=== PATIENT | female | born 1955 | race African-American/Black ===

== ENCOUNTER 2017-06-25 09:38 | Inpatient (IN) | payer MEDICAID ==
[~2017-06-25] VITALS: Ht 175.3 cm; Wt 89.4 kg
--- NOTE | 2017-06-25 09:38 | NUR ---
C/O WORSENING CHEST PAIN X 2 WKS, RADIATING TO THE BACK. NAD NOTED. PT AAO X4, AMB WITH STEADY GAIT. RR EVEN AND UNLABORED. PENDING MD VINSON.
[2017-06-25] MEDS ORDERED: ASPIRIN 81 MG TAB.CHEW ONE (10:05)
[2017-06-25] MEDS ORDERED: NITROGLYCERIN PACKET 1 GM PACKET ONE (10:05)
[2017-06-25 10:22] LABS: BASOPHILS % (AUTO) 0.6 % (0.0-2.0); EOSINOPHILS % (AUTO) 2.1 % (0.0-6.0); HEMATOCRIT 39 % (33-45); HEMOGLOBIN 13.6 g/dL (11.5-14.8); LYMPHOCYTES # (AUTO) 3.9 /CMM (0.8-4.8); LYMPHOCYTES % (AUTO) 57.1 % (20.0-44.0); MEAN CORPUSCULAR HGB CONC 35 g/dl (31.0-36.0); MEAN CORPUSCULAR VOLUME 108 fL (82-100); MONOCYTES # (AUTO) 0.3 /CMM (0.1-1.30); MONOCYTES % (AUTO) 5.2 % (2.0-12.0); NEUTROPHILS # (AUTO) 2.3 /CMM (1.8-8.9); PLATELET COUNT (AUTO) 225 /CMM (150-450); RDW COEFFICIENT OF VARIATION 12.8 (11.5-15.0); RED BLOOD CELL COUNT(AUTO) 3.59 MIL/uL (4.0-5.2); WHITE BLOOD COUNT (AUTO) 6.6 K/uL (4.3-11.0)
[2017-06-25] MEDS ORDERED: ASPIRIN 81 MG TAB.CHEW PO ONE (10:30)
[2017-06-25] MEDS ORDERED: NITROGLYCERIN PACKET 1 GM PACKET TD ONE (10:30)
[2017-06-25 10:32] LABS: CALCIUM, SERUM 8.8 mg/dL (8.5-10.1); CARBON DIOXIDE 29 mmol/L (21-32); CHLORIDE 105 mmol/L (98-107); CREATININE 0.7 mg/dL (0.6-1.3); GLUCOSE 106 mg/dL (74-106); POTASSIUM 3.7 mmol/L (3.5-5.1); SODIUM SERUM 140 mmol/L (136-145); UREA NITROGEN, BLOOD 12 mg/dL (7-18)
[2017-06-25 10:36] LABS: INR 0.92 (0.85-1.15)
[2017-06-25 10:40] LABS: TROPONIN I < 0.017 ng/mL (0.00-0.056)
[2017-06-25] MEDS ORDERED: PERINDOPRIL PO (11:16)
[2017-06-25] MEDS ORDERED: NEVI200T PO (11:16)
[2017-06-25] MEDS ORDERED: INDAPAMIDE PO (11:16)
[2017-06-25] MEDS ORDERED: LAMI1TAB PO (11:16)
[2017-06-25 11:35] LABS: EOSINOPHILS % (MANUAL) 2 % (0-4); MONOCYTES % (MANUAL) 3 % (0-11.0); NEUTROPHILS % (MANUAL) 39 (42-76); REACTIVE LYMPHOCYTES 8 % (0-0)
[2017-06-25 11:39] LABS: LYMPHOCYTES % (MANUAL) 48 % (16-48)
--- NOTE | 2017-06-25 11:47 | NUR ---
RM 322-1
--- NOTE | 2017-06-25 12:29 | NUR ---
REPORT GIVEN TO MARKY GARCÍA FOR [facility]
[2017-06-25 12:35] VITALS: BP 142/86
--- NOTE | 2017-06-25 12:35 | NUR ---
tele pvc loader: admission admitted this 62 yr old female pt from [facility] with dx: chest pain accompanied by daughter. awake, a/ox4, ambulatory. speaks georgian fluent with little somali. daughter to translate from time to time. denies chest pain at this time, stated, "it was like a burning sensation before, but not now." pt also denies dizziness, martines, n/v, and sob at this time. place pt on tele sr=[id number]. oriented to room and surroundings. pt hiv positive and pt and daughter request not to tell her son re: this matter. fely made aware. jeanmarie (admitting doctor) made aware. awaiting orders. will continue to monitor.
--- NOTE | 2017-06-25 14:00 | NUR ---
tele crnp: notes pt resting comfortable in bed. no c/o chest pain or sob at this time.
--- NOTE | 2017-06-25 15:00 | NUR ---
tele chaperon: notes son here and very demanding, son wants all questions and concerns answer immediately. all concerns answered. jeanmarie (acnp) notified and made aware.
[2017-06-25] MEDS ORDERED: NITROGLYCERIN 0.4 MG/TAB BOTTLE SL PRN (15:30)
[2017-06-25] MEDS ORDERED: Z GUARD REMEDY 2 OZ OINT TP PRN (15:30)
[2017-06-25] MEDS ORDERED: MORPHINE SULFATE INJ 4 MG/ML DISP.SYRIN IV PRN (15:30)
[2017-06-25] MEDS ORDERED: ACETAMINOPHEN 325 MG TABLET PO PRN (15:30)
[2017-06-25] MEDS ORDERED: MAGNESIUM HYDROXIDE 30 ML UDC PO PRN (15:30)
[2017-06-25] MEDS ORDERED: MAG HYDROX/AL HYDROX/SIMETH 30 ML UDC PO PRN (15:30)
[2017-06-25] MEDS ORDERED: ONDANSETRON HCL/PF 4 MG/2 ML VIAL IVP PRN (15:30)
[2017-06-25] MEDS ORDERED: ZOLPIDEM TARTRATE 5 MG TABLET PO PRN (15:30)
[2017-06-25] MEDS ORDERED: HYDROCODONE/APAP 5/325MG 1 EACH TABLET PO PRN (15:30)
--- NOTE | 2017-06-25 15:30 | NUR ---
m/s food concession manager: md visit jeanmarie (kaiser) spoke to daughter privately; also seen and examined pt after speaking to daughter. jeanmarie (kaiser) spoke to son at bedside and all questions and concerns answered.
--- NOTE | 2017-06-25 15:50 | NUR ---
m/s entry level software engineer: notes son wants pt to [facility] later tonight as stated. manpower development specialist still at bedside answering questions. cn aware.
[2017-06-25 16:00] VITALS: BP_SYST 125; BP_SYST 149; BP_DIAS 84; BP_DIAS 91
--- NOTE | 2017-06-25 16:20 | NUR ---
tele vocational coordinator: notes son came up and informed us that pt is staying and not leaving [facility].
--- NOTE | 2017-06-25 16:30 | NUR ---
m/s proposal engineer: notes jeanmarie (kaiser) spoke to pt, son, and daughter for possible egd and stress test in am. pt and family verbalized understanding.
--- NOTE | 2017-06-25 18:50 | NUR ---
tele investment accountant: notes resting comfortable in bed. no distress noted. needs attended. daughter remains at bedside. will continue to monitor.
[2017-06-25 20:00] VITALS: BP 135/85
[2017-06-25 20:36] VITALS: BP 135/85
--- NOTE | 2017-06-25 21:40 | NUR ---
PORTER USED CAR LOT NOTES PATIENT COMPLAINED OF STUFFY NOSE ACCOMPANIED BY HEAD ACHE. NOTIFIED MD FITZ ABBOTT. WITH NEW ORDERS NOTED AND CARRIED OUT.
[2017-06-25] MEDS ORDERED: PSEUDOEPHEDRINE HCL 30 MG TABLET PO PRN (22:00)
[2017-06-26] VITALS: BP 123/77
[2017-06-26 04:00] VITALS: BP_SYST 131; BP_SYST 133; BP_DIAS 59; BP_DIAS 80
--- NOTE | 2017-06-26 07:45 | NUR ---
PHYSICIAN PRESIDENT: INITIAL NOTE RECEIVED PT A/OX4. ON TELE MONITORING SINUS RHYTHM PACING AT 62 BPM. NO DISTRESS NOTED. NO SOB NOTED. NO PAIN NOTED. AMBULATORY WITH OUT ASSIST. SKIN INTACT. NPO EXCEPT MEDS DUE TO POSSIBLE STRESS TEST IN AM PER MD DOOLEY. L AC #20 RUN[address]ING SL. SITE CLEAR AND PATENT. NO REDNESS OR BLEEDING NOTED. RESTING COMFORTABLY IN BED. CALL LIGHT WITHIN REACH.
[2017-06-26 08:00] VITALS: BP 123/73
[2017-06-26] MEDS ORDERED: LISINOPRIL (10MG) 10 MG TABLET PO SCH (09:00)
[2017-06-26] MEDS ORDERED: REGADENOSON 0.4 MG/5 ML DISP.SYRIN IVP ONE (09:00)
[2017-06-26 09:12] VITALS: BP 148/70
--- NOTE | 2017-06-26 11:00 | NUR ---
PT REFUSED MYOCARDIAL STRESS TEST. ALL RISKS AND BENEFITS EXPLAINED.. HEAD OF MARKETING KOBE AWARE
--- NOTE | 2017-06-26 14:11 | NUR ---
MS RN: DISCHARGE NOTE PT DISCHARGED HOME WITH SELF CARE. TOOK ALL MORNING MEDICATIONS ON TIME. NO ADVERSE REACTIONS NOTED. NO SOB NOTED. NO PAIN NOTED. NO COMPLAINTS OF CHEST PAIN NOTED. BRP. AMBULATORY. L AC #20 SL REMOVED. SITE CLEAR. NO REDNESS OR BLEEDING NOTED. REFUSED STRESS TEST IN AM. SKIN INTACT. ALL DISCHARGE INFORMATION PROVIDED. ALL DISCHARGE INFORMATION SIGNED AND COPIES PROVIDED. ALL BELONGINGS ACCOUNTED FOR. PT LEFT AMBULATORY WITH DAUGHTER IN PRIVATE CAR.
== END 2017-06-26 13:50 | disposition home or self-care (01) | DRG 198 ==
LOC: ER 09:39 → TELE 11:55 → MED 06-26 09:44
PROVIDERS: ADMIT Nurse Practitioner Acute Care; ATTEND Nurse Practitioner Acute Care
DX: I24.9 Acute ischemic heart disease, unspecified (principal); I10 Essential (primary) hypertension; K21.0 Gastro-esophageal reflux disease with esophagitis; Z90.721 Acquired absence of ovaries, unilateral; Z79.899 Other long term (current) drug therapy; E66.9 Obesity, unspecified; Z87.59 Personal history of other complications of pregnancy, childbirth and the puerperium; Z68.29 Body mass index [BMI] 29.0-29.9, adult; B37.9 Candidiasis, unspecified
CPT/HCPCS: 36415; 71045-TC; 80048-TC; 84484-TC; 85025-TC; 85730-TC; 87081-TC; 93307-TC; A4606; J2785; Z7610